=== PATIENT | female | born 1985 | race Caucasian/White ===

== ENCOUNTER 2025-02-27 16:02 | Emergency (ER) | payer OTHER, SELFPAY ==
--- OUTSIDE RECORDS SUMMARY | 2025-02-27 16:04 | XMS_ITS | Clinical Summary ---
Author Organization [facility] Address [address] [place] [address] Care Team Providers Care Food Manager Name Role Phone Demetra Coleman MD Unavailable [phone] Verito Dewitt Primary Care Provider [phone] Allergies Active Allergy Reactions Criticality Noted Date Comments Shrimp Hives,Itching 09/28/2020 Medications dextroamphetamine sulfate 10 mg tabletIndications: ADHD (attention deficit hyperactivity disorder), combined type Take 1 Tablet (10 mg) by mouth two times daily. 60 Tablet 5 Active dextroamphetamine sulfate 10 mg tabletIndications: ADHD (attention deficit hyperactivity disorder), combined type Take 1 Tablet (10 mg) by mouth two times daily. 60 Tablet 5 Active tazarotene 0.1 % creamIndications:A cne vulgaris Apply topically to affected area(s) at bedtime. 30 g 2 5 Active clindamycin 1 % gelIndications:Acn e vulgaris APPLY TO AFFECTED AREA UP TO 2 TIMES A DAY 60 g 2 5 Active dextroamphetamine sulfate (DEXEDRINE; DEXTROSTAT; ZENZEDI) 10 mg tabletIndications: ADHD (attention deficit hyperactivity disorder), combined type TAKE ONE TABLET BY MOUTH TWICE A DAY 60 Tablet 5 Active Active Problems Problem Noted Date Diagnosed Date Cervical cancer screening 08/05/2024 Overview (08/05/2024): 06/2024 NIL/HPV negative. Plan: Pap/HPV due 06/2029. Mixed hyperlipidemia 07/21/2024 ADHD (attention deficit hype ractivity disorder), combined type 03/01/2023 Controlled substance agreement signed 03/01/2023 Right tubal without intrauterine pregn carlos enrique 05/14/2019 Encounters Date Type Department Care Team Description 01/11/2025 Refill [facility] [address] [place] [address] Verito Dewitt PA Refill Request (Dextroamphetamine Sulfate) from Last 3 Months Immunizations Immunization Administration Dates Next Due Human Papilloma Virus Vaccine 09/16/2012, 012,06/19/2010 Influenza, IIV3 (Age >=3 years) 04/22/2006 Tdap 05/03/2011 Family History Medical History Relation Name Comments Schizophrenia Brother Coronary artery disease Father Hypertension Father Kidney disease Father Skin cancer Father Alzheimer's disease Maternal Grandmother Skin cancer Maternal Grandmother Good Health Mother Alzheimer's disease Paternal Grandmother Relation Name Status Comments Brother Father Maternal Grandmother Mother Paternal Grandmother Social History Tobacco Use Types Packs/Day Years Used Date Smoking Tobacco: Never Smokeless Tobacco: Never Tobacco Cessation:Counseling Given: Yes Alcohol Use Standard Drinks/Week Comments Not Currently 1 (1 standard drink = 0.6 oz pur e alcohol) PHQ-2 Answer Date Recorded PHQ-2 TOTAL SCORE 0 07/20/2024 Social Connections Answer Date Recorded Do you often feel lonely or isolated from those around you? 0 07/20/2024 Financial Resource Strain Answer Date R ecorded Difficulty of Paying Living Expenses 3 07/20/2024 Difficulty of Paying Living Expenses Not on file 07/20/2024 Food Insecurity Answer Date Recorded Do you worry your food will run out before you are able to buy more? 1 07/20/2024 Transportation Needs Answer Date Record ed Does lack of transportation keep you from medica l appointments? 1 07/20/2024 Does lack of transportation keep you from work, meetings or getting things that you need? 1 07/20/2024 Housing Stability Answer Date Recorded What is your housing situation today? 1 07/20/2024 Utilities Answer Date Recorded Do you have trouble paying f or utilities (for example, heat, electricity, water, phone)? 1 07/20/2024 Comments No Sex and Gender Information Value Date Recorded Sex Assigned at Female 09/28/2020 8:09 AM CDT Legal Sex Female 1:59 PM CDT Gender Identity Female 09/28/2020 8:09 AM CDT Sexual Orientation Straight 09/28/2020 8: 09 AM CDT Obstetrics History Para Term AB IAB SAB Ectopic Multiple Livin g Live Births 2 0 0 0 2 0 0 2 0 0 0 Date Outcome GA Total Labor Labor/2nd/3rd Weight Sex Type Anes PTL Jojo A1 A5 Name Clin 2018 Ectopic 020 Ectopic Comments Left Salpingectomy Last Filed Vital Signs Vital Sign Reading Time Taken Comments Blood Pressure 102/69 07/20/2024 3:30 PM CDT Pulse 81 07/20/2024 3:30 PM CDT Temperature 36.4 C (97.5 F) 05/19/2019 5:35 PM ASIAN ART CURATOR Respiratory Rate 20 05/19/2019 5:35 PM ASIAN ART CURATOR Oxygen Saturation 100% 07/20/2024 3:30 PM CDT Inhaled Oxygen Concentration - - Weight 69.4 kg (153 lb) 07/20/2024 3:30 PM CDT Height 174.8 cm (5' 8.82) 07/20/2024 3:30 PM CD T Body Mass Index 22.71 07/20/2024 3:30 PM CDT Plan of Treatment Health Maintenance Due Date Last Done Comments Hepatitis B series for 19+ (1 of 3 - 19+ 3-dose series) 2005 Tetanus booster 05/03/2021 05/03/2011 COVID-19 vaccine series ( season) 2024 Influenza Vaccine (#1) 2024 04/22/2006 BMI (ht and wt on same day) for age 18+ 07/20/2025 07/20/2024, 03/01/2023, 10/28/2020, Additional history exists Depression screening for age 12+ 07/23/2025 07/23/2024, 07/20/2024, 03/05/2023, Additional history exists Pap test for age 21-65 07/20/2029 , 07/20/2024, 09/28/2020 RSV vaccine for adults or (1 - 1-dose 75+ series) 2061 HPV series for age 9-45 Completed 09/17/19 13, 05/03/2011, 06/19/2010 HIV for age 15-65 Completed 03/01/2023 Hepatitis C screening for age 18-79 Completed 03/01/2023 Pneumococcal series for age 6-49 Aged Out No longer eligible based on patient's age to complete this topic Procedures Procedure Name Priority Date/Time Associated Diagnosis Comments COUNTER PROFESSIONAL THIN PREP PAP SCREEN IMAGED Routine 07/20/2024 4:33 PM CDT Screening for malignant neoplasm of cervix ANTI HIV 1/2 Routine 03/01/2023 3:43 PM ASIAN ART CURATOR Screening for HIV (human immunodeficiency virus) ANTI HCV Routine 03/01/2023 3:43 PM ASIAN ART CURATOR Need for hepatitis C screening test from Last 3 Months or Most Recently Relevant to Health Maintenance Results * COUNTER PROFESSIONAL THIN PREP PAP SCREEN IMAGED (07/20/2024 4:33 PM CDT) Case Report Gynecologic Cytology Report Case: [id number] Authorizing Provider: Verito Dewitt PA Collected: 07/20/2024 1633 Ordering Location: [facility] Received: 07/20/2024 1634 Clinic First Screen: Molly Wilhelm Specimen: COUNTER PROFESSIONAL ThinPrep Vial Screening, Cervical 08/04/2024 8:54 AM CDT [facility] INTERPRETATION/ RESULT NEGATIVE FOR INTRAEPITHELIAL LESION OR MALIGNANCY (NIL) (none) 08/04/2024 8:54 AM CDT [facility] 0854 CDT SPECIMEN ADEQUACY Satisfactory for evaluation No endocervical component seen 08/04/2024 8:54 AM CDT [facility] HPV REQUEST HPV and PAP 08/04/2024 8:54 AM CDT [facility] Date of LMP 06/22/24 08/04/2024 8:54 AM CDT [facility] Last Pap Date 09/28/20 08/04/2024 8:54 AM CDT [facility] Last Pap Result NIL 8:54 AM CDT [facility] Abnormal Pap or [place] Bx in last 5 years No 08/04/2024 8:54 AM CDT [facility] Menstrual Status Regular Periods 08/04/2024 8:54 AM CDT [facility] [place] Bx Done Today No 08/04/2024 8:54 AM CDT [facility] Additional Information None given 08/04/2024 8:54 AM CDT [facility] Comment: Cytology is screened at [facility] - [address], [place] [address] and [facility] - [address], [place] [address] and [facility] - [address] [place] [address] Interpreted at [facility] - [address], [place] [address] Automated Review Successful 08/04/2024 8:54 AM CDT [facility] Comment:Specimen processed s uccessfully by automated manager news device, ThinPrep Imaging System, [employer] ANCILLARY TESTING COUNTER PROFESSIONAL HPV Ordered, Please see separate report 08/04/2024 8:54 AM CDT [facility] Note The pap test is a screening technique, not a diagnostic procedure. It is used primarily to screen for squamous cancers and precursor lesions. Published studies have shown that it is subject to both false negative and false positive results. The pap test should not be used as the sole means to diagnose or exclude pre-malignant and malignant lesions. 08/04/2024 8:54 AM CDT [facility] Other (Cervical) Non-Blood / Unknown 07/20/2024 4:33 PM CDT 07/20/2024 4:34 PM CDT Verito BANDA PATHOLOGY/CYTOLOGY Final R esult [facility] [address] [place] [address] * ANTI HCV (03/01/2023 3:43 PM ASIAN ART CURATOR) HEPATITIS C ANTIBODY Non-Reacti ve Non-React nathalie 03/04/2023 3:21 PM ASIAN ART CURATOR [facility] Comment:Please note, per www .CDC.gov: If a patient is known to be at high risk of HCV infection, or is symptomatic, and the physician's suspicion of HCV infection is high, HCV RNA testing is often employed and is of diagnostic value, even after an initial negative anti-HCV test result. Blood BLOOD SPECIMEN / Unknown Venipuncture / Unknown 03/01/2023 3:43 PM ASIAN ART CURATOR 03/01/2023 3:45 PM ASIAN ART CURATOR Verito BANDA SEND OUTS Final Resu lt Performing Organization Address [facility] Co de Phone Number [facility] [address] [place] [address], * ANTI HIV 1/2 (03/01/2023 3:43 PM ASIAN ART CURATOR) HIV-1/HIV-2 SCREEN Non-Reacti ve Non-Reacti ve 03/01/2023 10:09 PM ASIAN ART CURATOR [facility] Comment:HIV-1 p24 and HIV-1/ HIV-2 Ab Not Detected. Blood BLOOD SPECIMEN / Unknown Venipuncture / Unknown 03/01/2023 3:43 PM ASIAN ART CURATOR 03/01/2023 3:45 PM ASIAN ART CURATOR us Verito BANDA SEND OUTS Final Resu lt Performing Organization Address City/[facility]/ZIP Co de Phone Number [facility] [address] [place] [address], from Last 3 Months or Most Recently Relevant to Health [place] [id number] [place] [id number] Care Teams Food Manager Relationship Specialty Start Date End Date Verito Dewitt PA [address] [place] [address] PCP - General Physician Security Trainer 03/01/23 Demetra Coleman MD [address] [place] [address] Family Practice 09/28/20
--- OUTSIDE RECORDS SUMMARY | 2025-02-27 16:04 | XMS_ITS | Patient Health Record ---
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
[2025-02-27 16:08] VITALS: BP 96/62; PULSE 86; RESP 20; TEMP 37.8; O2SAT 100; BMI 22.2
[2025-02-27 16:35] LABS: Hematocrit* 38.4 % (33.0-51.0); Hemoglobin* 12.5 gm/dL (12.0-16.0); Immature Granulocytes Abs Auto 0.00 K/uL (0.00-0.30); Immature Granulocytes Pct Auto 0.0 %; Lymphocytes Absolute Auto 2.03 K/uL (0.90-2.90); Mean Corpuscular HGB Conc 33 gm/dL (32-36); Mean Corpuscular Hemoglobin 29 pg (26-34); Mean Corpuscular Volume 88 fL (80-100); RDW Coefficient of Variation % 12.4 % (11.5-15.5); Red Blood Count* 4.38 m/uL (4.00-5.20); White Blood Count* 6.40 K/uL (4.50-11.00)
[2025-02-27 16:36] LABS: Slide Review Reflex No
[2025-02-27 16:37] LABS: Appearance Urine Clear (Clear); Ur HCG Qualitative* POSITIVE (Negative)
--- NOTE | 2025-02-27 16:39 | CRLHL7_ITS ---
For Patients: As a result of the Century Cures Act, medical imaging exams and procedure reports are released immediately into your electronic medical record. You may view this report before your referring provider. If you have questions, please contact your health care provider. INDICATION: Right-sided pelvic pain. Beta HCG 546.87. TECHNIQUE: Ultrasound pelvis transvaginal for better assessment or to better visualize the endometrium. Real-time sonographic images with spectral and color Doppler imaging of the ovaries were obtained. COMPARISON: None. FINDINGS: The uterus is normal in size and echotexture without mass. The endometrial stripe is thickened to 1.8 cm without gestational sac or focal fluid collection identified. No endometrial mass visualized. The ovaries are normal in appearance with probable corpus luteum within the right ovary. No abnormal free fluid in the pelvic cul-de-sac. IMPRESSION: Mildly thickened endometrial stripe measuring 1.8 cm without intrauterine gestation identified. Otherwise, unremarkable pelvic ultrasound. In the setting of a positive beta HCG, findings could represent an early nonvisualized intrauterine gestation, an early nonvisualized ectopic , or a failed intrauterine gestation. Recommend close clinical follow-up with serial B-HCGs and repeat US, as indicated. Dictated by Freddy Gaspar MD @ 02/27/2025 6:20:57 PM (Electronically Signed)
[2025-02-27 16:53] LABS: Chloride* 101 mmol/L (96-114); Potassium* 4.5 mmol/L (3.6-5.1); Sodium* 136 mmol/L (135-149)
[2025-02-27 16:55] LABS: Blood Urea Nitrogen* 12 mg/dL (5-24); Creatinine* 0.7 mg/dL (0.5-1.5); Est. Creatinine Clearance* 117.84; Estimated Glomerular Filt Rate 113 ml/min
[2025-02-27 16:56] LABS: Anion Gap 11 mEq/L (7-15); Calcium* 8.7 mg/dL (8.4-10.6); Carbon Dioxide* 24 mmol/L (20-32); Glucose* 93 mg/dL (60-115)
[2025-02-27 17:10] VITALS: BP 112/66; PULSE 82; RESP 16; O2SAT 96
--- NOTE | 2025-02-27 17:21 | ED_ITS ---
HPI - General Adult General Date Seen: 02/27/25 Chief complaint: Abdominal Pain Stated complaint: Abdominal pain, possible ectopic pregnacy Time Seen by Provider: 02/27/25 16:04 Source: patient Mode of arrival: ambulatory Limitations: no limitations History of Present Illness HPI narrative: Patient is a 39-year-old female presenting to the emergency department for right pelvic pain. She states she has had this pain before in the past with 2 previous ectopic pregnancies. Those are the only time she has ever been . She had 1 surgery that removed the left fallopian tube and then was treated with methotrexate for the other. She states pain started yesterday and has been gradually getting worse. Denies nausea, vomiting, fevers, chills, diarrhea, constipation, headache, vision changes, chest pain, shortness of breath. She has not had any vaginal bleeding. States she had vaginal bleeding for her previous ectopic pregnancies. Denies any hematuria or dysuria. No other concerns noted at this time. Related Data Home Medications ?Medication ?Instructions ?Recorded ?Confirmed dextroamphetamine sulfate 10 mg 10 mg PO BID 02/27/25 02/27/25 tablet Allergies Allergy/AdvReac Type Severity Reaction Status Date / Time No Known Drug Allergies Allergy Verified 02/27/25 16:11 Review of Systems Status of ROS: Reports: 10 or more systems reviewed and unremarkable except as noted in History and below Exam Narrative: Exam Narrative: Const: Well-nourished, Well-developed, in mild distress Eyes: PERRL, no conjunctival injection, and symmetrical lids HENT: Atraumatic external nose and ears. Moist mucous membranes. Neck: Symmetric, trachea midline, No thyromegaly. CVS: RRR, No murmurs or gallops. Peripheral pulses 2+ and equal in all extremities RESP: Unlabored respiratory effort. Clear to auscultation bilaterally. GI: Tenderness to palpation to right lower quadrant specifically at McBurney's point and right pelvis. Nondistended, No rebound or guarding. MSK:Extremities w/o deformity, Normal Active ROM Skin: Warm, Dry. No rashes or lesions. Neuro: Normal Muscle tone, No focal neurological deficits. Psych: Awake, Alert, & Oriented x3. Appropriate mood and affect. Const: Vital Signs, click to edit/add: Vital Signs - 24 hr 02/27/25 16:08 02/27/25 17:10 Temperature 100.0 F H Pulse Rate 82 Pulse Rate [Pulse Oximeter] 86 Respiratory Rate 20 16 Blood Pressure 112/66 Blood Pressure [Ri ght Upper Arm] 96/62 Pulse Oximetry 100 96 Oxygen Delivery Me thod Room Air Room Air Course Vital Signs Vital signs: Initial Vital Signs Temperature 100.0 F H 02/27/25 16:08 Temperature Source Temporal Artery Scan 02/27/25 16:08 Pulse Rate 86 02/27/25 16:08 Respiratory Rate 20 02/27/25 16:08 Blood Pressure 96/62 02/27/25 16:08 Blood Pressure Mean 73 02/27/25 16:08 Blood Pressure Position Sitting 02/27/25 16:08 Pulse Oximetry 100 02/27/25 16:08 Oxygen Delivery Method Room Air 02/27/25 16:08 Vital Signs Temperature 100.0 F H 02/27/25 16:08 Pulse Rate 86 02/27/25 16:08 Respiratory Rate 20 02/27/25 16:08 Blood Pressure 96/62 02/27/25 16:08 Pulse Oximetry 100 02/27/25 16:08 Oxygen Delivery Method Room Air 02/27/25 16:08 Temperature 100.0 F H 02/27/25 16:08 Pulse Rate 82 02/27/25 17:10 Respiratory Rate 16 02/27/25 17:10 Blood Pressure 112/66 02/27/25 17:10 Pulse Oximetry 96 02/27/25 17:10 Oxygen Delivery Method Room Air 02/27/25 17:10 Medical Decision Making MDM Narrative Medical decision making narrative: Patient is a 39-year-old female presenting to the emergency department for right pelvic pain. She notices the pain mostly in her pelvic region but on my exam she was having some tenderness in the right lower quadrant of the abdomen also. I do some concern for appendicitis. Will hold any CT imaging pending rest of workup. Main concern at this time is ectopic . Urine test was positive so will order an ultrasound. Quantitative hCG also ordered. Also order type and screen, BMP, CBC, urinalysis. Lab work shows no acute concerning abnormalities. White blood cell count within normal limits. Her quantitative hCG is 546. This is consistent with around 5 weeks of . Ultrasound returned showing no clear signs of was causing symptoms. There is a thickened endometrial stripe but we cannot see an intrauterine or ectopic . As he has had no bleeding I do not believe she had a miscarriage. With the pain though I am still concerned about possible appendicitis. We do not have MRI available at this time patient declined CT to the which is very reasonable. Considering her lab work looks well and she overall feels well I am comfortable discharging her home with OB follow-up. I did speak to the on-call OB provider, Dr. Barreto, she states she can follow-up with them in clinic. I did give the patient strict return precautions for worsening pain and informed her she may need an MRI for appendicitis. She is agreeable to this plan. She will be discharged. Lab Data Labs: Lab Results 02/27/25 02/27/25 02/27/25 Range/Units 16:25 16:30 16:38 WBC 6.40 (4.50-11.00) K/uL RBC 4.38 (4.00-5.20) m/uL Hgb 12.5 (12.0-16.0) gm/dL Hct 38.4 (33.0-51.0) % MCV 88 (80-100) fL MCH 29 (26-34) pg MCHC 33 (32-36) gm/dL RDW Coeff of Mariluz 12.4 (11.5-15.5) % Plt Count 257 (140-440) K/uL Neut % (Auto) 54.0 (42.0-72.0) % Lymph % (Auto) 31.7 (20-44) % Dickinson % (Auto) 7.2 (0.0-11.0) % Eos % (Auto) 6.3 (0.0-7.0) % Baso % (Auto) 0.8 (0.0-3.0) % Neut # (Auto) 3.46 (1.7-7.0) K/uL Lymph # (Auto) 2.03 (0.90-2.90) K/uL Dickinson # (Auto) 0.50 (0.00-0.90) K/UL Eos # (Auto) 0.40 (0.00-0.50) K/uL Baso # (Auto) 0.05 (0.00-0.30) K/uL Abs Immat Gran (auto) 0.00 (0.00-0.30) K/uL Imm/Tot Granulo (auto) 0.0 % Sodium 136 (135-149) mmol/L Potassium 4.5 (3.6-5.1) mmol/L Chloride 101 (96-114) mmol/L Carbon Dioxide 24 (20-32) mmol/L Anion Gap 11 (7-15) mEq/L BUN 12 (5-24) mg/dL Creatinine 0.7 (0.5-1.5) mg/dL Estimated Creat Clear 117.84 Estimated GFR 113 ml/min Glucose 93 (60-115) mg/dL Calcium 8.7 (8.4-10.6) mg/dL HCG, Quant 546.87 mIU/mL Urine Color Yellow (Yellow) Urine Appearance Clear (Clear) Urine pH 5.5 (5.0-8.5) Ur Specific [place] 1.025 (1.000-1.030) Urine Protein Negative (Negative) Urine Glucose (UA) Negative (Negative) Urine Ketones Negative (Negative) Urine Blood Negative (Negative) Urine Nitrite Negative (Negative) Urine Bilirubin Negative (Negative) Urine Urobilinogen 0.2 (0.2-1.0) Ur Leukocyte Esterase Negative (Negative) Urine RBC 0-2 (0-2) Urine WBC 0-2 (0-5) Ur Squamous Epith Cells Few (None-Few) Urine Bacteria None (None) Urine HCG, Qual POSITIVE H (Negative) Lab Acknowledgement Test Added Blood Type B Positive Antibody Screen NEGATIVE Imaging Data Transvaginal ultrasound: Attestation: I have reviewed the pertinent imaging results. Radiologist's impression: Mildly thickened endometrial stripe measuring 1.8 cm without intrauterine gestation identified. Otherwise, unremarkable pelvic ultrasound. In the setting of a positive beta HCG, findings could represent an early nonvisualized intrauterine gestation, an early nonvisualized ectopic , or a failed intrauterine gestation. Recommend close clinical follow-up with serial B-HCGs and repeat US, as indicated. Dictated by Freddy Gaspar MD @ 02/27/2025 6:20:57 PM Discharge Plan Discharge Clinical Impression: Pelvic pain during Patient Disposition: Home, Self-Care Condition: Stable Instructions: Abdominal Pain in (ED) Additional Instructions: [facility] should be calling you 1 Saturday to schedule close follow-up. They will likely want you to be seen either Saturday or Saturday. If he started having worsening right lower quadrant abdominal pain there is concerned about appendicitis I recommend you get it evaluated immediately. You will likely need an MRI due to her . MRI is typically available here in [place] on week days during the day. Prescriptions: No Action dextroamphetamine sulfate 10 mg tablet 10 mg PO BID Follow Up/Referrals: Verito Dewitt PA-C [Primary Care Provider, Family Practice] Stand Alone Forms: [facility] Info Instructions
[2025-02-27 18:53] VITALS: BP 106/66; PULSE 85; RESP 16; O2SAT 100
== END 2025-02-27 18:58 | disposition home or self-care (01) ==
PROVIDERS: Emergency Provider Student in an Organized Health Care Education/Training Program; PCP Physician Assistant
DX: R10.21 Pelvic and perineal pain right side (principal); Z3A.01 Less than 8 weeks gestation of pregnancy
CPT/HCPCS: 36415; 76817; 80048; 81001; 81025; 84702; 85025; 86850; 86900; 86901; 93976; 99284

== ENCOUNTER 2025-03-01 10:43 | Outpatient (CLI) | payer OTHER, SELFPAY | END 2025-03-01 10:44 | disposition home or self-care (01) | LOC: NFLDREF 10:43 | PROVIDERS: PCP Physician Assistant; Visit Provider Obstetrics & Gynecology | DX: O36.80X0 Pregnancy with inconclusive fetal viability, not applicable or unspecified (principal) | CPT/HCPCS: 84702 ==

== ENCOUNTER 2025-03-03 11:53 | Outpatient (CLI) | payer OTHER, SELFPAY | END 2025-03-03 11:54 | disposition home or self-care (01) | LOC: NFLDREF 03-09 21:24 | PROVIDERS: PCP Physician Assistant; Referring Provider Physician Assistant; Visit Provider Obstetrics & Gynecology | DX: O36.80X0 Pregnancy with inconclusive fetal viability, not applicable or unspecified (principal) | CPT/HCPCS: 80053; 84702 ==

== ENCOUNTER 2025-03-03 11:56 | Outpatient (CLI) | payer OTHER, SELFPAY ==
--- NOTE | 2025-03-03 12:15 | CRLHL7_ITS ---
For Patients: As a result of the Century Cures Act, medical imaging exams and procedure reports are released immediately into your electronic medical record. You may view this report before your referring provider. If you have questions, please contact your health care provider. Indication: of uncertain location. Technique: Ultrasound examination of the pelvis was performed. The study was performed transvaginally. Grayscale imaging was provided as well as color Doppler and spectral Doppler. The transvaginal portion of the study was performed to better evaluate the endometrial contents and the adnexa. Comparison: A prior study dated February 27, 2025. That study did not show an IUP. Findings: The uterus is normal in size. There is heterogeneous thickening of the endometrium without evidence of a fluid collection, yolk sac or pole within the endometrium. This could be a pseudo gestational reaction. There is a solid structure in the right adnexa measuring 5.2 x 1.5 x 2.2 centimeters. This did not appear to be present on the prior study and could be an ectopic . The right ovary measures 5.1 x 1.7 x 2.8 centimeters and the left ovary measures 3.6 x 1.3 x 3.0 centimeters. There is a corpus luteum cyst in the right ovary measuring 2.8 x 1.0 x 2.2 centimeters. There is mild free fluid in the cul-de-sac. Impression: 1. Solid structure in the right adnexa measuring 5.2 x 1.5 x 2.2 centimeters which was not demonstrated February 27, 2025. This appears to be separate from the ovary. 2. There is heterogeneous thickening of the endometrium but no findings of an IUP 3. There is a small amount of fluid in the cul-de-sac. 4. The ovaries are well visualized. There is a corpus luteum cyst of in the right ovary. The ovaries are otherwise unremarkable bilaterally. No evidence of torsion. 5. THE RIGHT ADNEXAL FINDING IS SUSPICIOUS FOR AN ECTOPIC . APPROPRIATE CONSULTATION IS RECOMMENDED REGARDING THIS FINDING. Dictated by Denilson Mooney MD @ 03/03/2025 12:54:14 PM (Electronically Signed)
== END 2025-03-03 11:57 | disposition home or self-care (01) ==
LOC: US 11:57
PROVIDERS: PCP Physician Assistant; Visit Provider Obstetrics & Gynecology
DX: O00.90 Unspecified ectopic pregnancy without intrauterine pregnancy (principal); O26.891 Other specified pregnancy related conditions, first trimester; N83.11 Corpus luteum cyst of right ovary; O36.80X0 Pregnancy with inconclusive fetal viability, not applicable or unspecified
CPT/HCPCS: 76817

== ENCOUNTER 2025-03-03 13:43 | Day surgery (SDC) | payer OTHER, SELFPAY ==
[2025-03-03] VITALS (21 sets, daily range): BP systolic 79–107; BP diastolic 36–69; PULSE 69–92; RESP 12–22; TEMP 36.8–37.2; O2SAT 96–100; BMI 22.2
--- NOTE | 2025-03-03 14:16 | P.GYNHP_ITS ---
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 Richard for ED follow up. This note is reviewed today. She was concerned about inappropriate rise of HCG and non viability of this so recommendation was given to repeat lab work, imaging and possibly treat with methotrexate today. Today ultrasound findings are very suggestive of right adnexal ectopic . Due to the size of suspected ectopic my partner Dr. Richard had a repeat discussion with patient and and they have decided to instead proceed with surgical management. As trade promotion analyst provider today, I will take care of surgery and observation in hospital today. The patient is a 39-year-old female who presents for an ED follow-up in the setting of a of unknown location. She is approximately 8w1d by LMP (somewhat uncertain). Gynecologic history is complicated by history of ectopic x2, where she underwent left salpingectomy with her 1st and was treated with methotrexate x2 for her 2nd. She is accompanied by her . Patient presented to the emergency department on 02/27 for right lower quadrant pain. There, her vital signs were within normal limits and she was hemodynamically stable. A pelvic ultrasound was obtained, which was negative for evidence of an IUP as well as negative adnexal survey. HCG was 546.87 and hemoglobin 12.5. Patient was discharged with return precautions. Repeat HCG on 03/01 demonstrated an inappropriate rise to 708.59 at 29.6%. Verito notes her pain has varied since ED presentation. At present, it is tolerable and rated about a 5/10 in severity. Yesterday evening it did seem to worsen, up to a 7 to 8/10. She notes her pain seems to be worse when she is up and moving, improves with lying down. She has not needed any ibuprofen or Tylenol for pain. Her only new symptom is that she has noted new onset of small volume vaginal bleeding, which was bright red x1 yesterday evening and now is brown. She denies any nausea/vomiting, dizziness/lightheadedness, fever/chills, feeling unwell or upper back pain. She did notice some left lateral scapula/upper arm pain yesterday that was transient, this has resolved. Her most notable ectopic risk factor is history of ectopic x2. She denies a history of tubal surgery, PID, gonorrhea/chlamydia. She conceived this spontaneously, it is desired. Gynecological History discussed: - Last menstrual period: 01/05/2025 - Cycle length: 31 days Obstetrical History discussed: - Third - Previous two pregnancies were ectopic PAST SURGICAL HISTORY: - Removal of left fallopian tube PFSH PFSH Social History What is your current living situation?: I presently have a place to live Problems where you live: no known problems In the past 12 months, utilities in danger of being shut off: no In past 12 months, lack of transportation kept you from medical appts, meetings, work, or getting things needed for daily living: no In the past 12 mos, have been you worried that your food would run out before you had money to buy more?: never true In the past 12 mos, the food you bought just didn't last and you didn't have money to buy more?: never true Smoking Status: Former smoker How often do you have a drink containing alcohol: never AUDIT-C Alcohol total score: 0 Non-prescribed substance use: denies use How often does anyone, including family, friends and others, physically hurt you : never How often does anyone, including family, friends and others, insult or talk down to you: never How often does anyone, including family, friends and others, threaten you with harm: never How often does anyone, including family, friends and others, scream or curse at you: never Meds Home Medications and Allergies Home Medications ?Medication ?Instructions ?Recorded ?Confirmed ?Type dextroamphetamine sulfate 10 mg 10 mg PO BID 02/27/25 03/03/25 History tablet Held on 03/03/25. 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 normal affect, alert, no distress MOOD:? appropriate CHEST:? clear to auscultation HEART:? regular rate and rhythm ABDOMEN:?soft, not distended, slightly tender to palpation of lower abdomen. EXTREMITIES:? normal and no edema GRAIN DRIER OPERATOR - Results Imaging Pelvic US: Radiologist's impression: Findings: The uterus is normal in size. There is heterogeneous thickening of the endometrium without evidence of a fluid collection, yolk sac or pole within the endometrium. This could be a pseudo gestational reaction. There is a solid structure in the right adnexa measuring 5.2 x 1.5 x 2.2 centimeters. This did not appear to be present on the prior study and could be an ectopic . The right ovary measures 5.1 x 1.7 x 2.8 centimeters and the left ovary measures 3.6 x 1.3 x 3.0 centimeters. There is a corpus luteum cyst in the right ovary measuring 2.8 x 1.0 x 2.2 centimeters. There is mild free fluid in the cul-de-sac. Impression: 1. Solid structure in the right adnexa measuring 5.2 x 1.5 x 2.2 centimeters which was not demonstrated February 27, 2025. This appears to be separate from the ovary. 2. There is heterogeneous thickening of the endometrium but no findings of an IUP 3. There is a small amount of fluid in the cul-de-sac. 4. The ovaries are well visualized. There is a corpus luteum cyst of in the right ovary. The ovaries are otherwise unremarkable bilaterally. No evidence of torsion. 5. THE RIGHT ADNEXAL FINDING IS SUSPICIOUS FOR AN ECTOPIC . APPROPRIATE CONSULTATION IS RECOMMENDED REGARDING THIS FINDING. Assessment and Plan Assessment and plan (1) Ectopic : Status: Acute Plan 39-year-old with positive test, inadequate rise in HCGs currently with imaging findings concerning for a right adnexal ectopic . After discussion of alternatives for management we recommend to proceed with surgical management. She has been NPO since yesterday. Currently vitally stable and pain is under control. I did review with patient and her surgical procedure. Reviewed recommendation for a laparoscopic approach and high possibility for right salpingectomy-removal of ectopic . Discussed how surgery is completed, patient would be very grateful if we could utilize the same abdominal incisions that were utilize for her previous laparoscopic surger y. Otherwise, discussed risks of surgery to include bleeding and needing a blood transfusion as a life-saving intervention, risk of infection, damage to nearby organs, risk of blood clots. Reviewed interventions to decrease these risks such as placement of a Pacheco catheter, compression stockings on her lower extremities. Discussed restrictions after surgery such as avoiding lifting more than 20 lb for at least 2 weeks after surgery. I would also recommend against intercourse or anything vaginally for the same amount of time. Discussed that we should obtain pathology results within a week and we will call her with results. Discussed recommendation for a follow-up clinic visit in 2 weeks after surgery. Patient would prefer to go home later tonight if possible. We reviewed what to expect in terms of pain, gas pain and possibility for shoulder pain after a laparoscopic surgery. Discussed possible alternatives for management of pain with anti-inflammatory medication and opiod medication. Whole OR has been notified, discussed with patient that we should be able to proceed with surgical intervention at around 4-5 p.m. in the meantime we will move her to a room so that she is more comfortable and continued monitoring while we proceed with surgery. Patient and are in agreement with plan. Patient understands that after this salpingectomy she would not be able to achie ve without assisted reproductive techniques. Patient and had already discussed IVF in the past and they are interested in this alternative further future.
[2025-03-03 14:38] LABS: Hemoglobin* 12.6 gm/dL (12.0-16.0)
[2025-03-03] MEDS: LACTATED RINGERS 1000 ML 1,000 ML 125 ML IV ×3 (14:45→22:22)
[2025-03-03] MEDS: BUPIVACAINE 0.5% 30 ML INJECTION (18:08)
--- NOTE | 2025-03-03 18:34 | P.GYNPRC_ITS ---
Procedure Note Date of procedure: 03/03/25 Will [facility] bill your pro fee for this procedure?: Yes Pre-op diagnosis: Suspected right adnexal ectopic Post-op diagnosis: Right fallopian tube ectopic Procedure: Laparoscopic right salpingectomy Anesthesia: GETA Complications: None Surgeon: Anne Watters MD Estimated blood loss (mL): 10 IV fluids (mL): 1,500 Urine Output (mL): 100 (clear urine at end of procedure) Pathology: specimen obtained, sent to pathology (right fallopian tube and ectopic) Condition: stable Disposition: observation Findings: Normal external genitalia. Speculum exam: cervix grossly normal w/o lesions or abnormal discharge. Intra abdominal survey: Grossly normal liver, stomach, intestine. Thin adhesions of the right ascending colon and appendix to the right abdominal sidewall. Appendix grossly normal. Evidence of moderate amount of blood in the posterior cul de sac. Evidence of previous salpingectomy on the left side. Right fallopian tube looked enlarged in its mid portion and fimbrial end noted to have light bleeding. Right ovary with small what looks like a hemorrhagic corpus luteum cyst. Left ovary grossly normal. Mideline uterus of about 9cm, w/o gross lesions. Procedure Description: Patient was taken to the OR with IV fluid running and pneumatic compression stockings applied to the lower extremities. General anesthesia was obtained without difficulty. The patient was placed in the dorsal lithotomy position with Deejay type stirrups with knee bent at 30 degree angles. Patient was prepared and draped under usual sterile technique. Examination under anesthesia with findings as above. The bladder was emptied and Pacheco catheter placed. Speculum was placed in the vagina. The anterior lip of the cervix was grasped with a single-tooth tenaculum. Uterine manipulator was introduced. I then changed gloves and attention was placed on the abdomen. Two Allis clamps were applied to the periumbilical skin for manual elevation of the abdomen. A vertical skin incision was made in the umbilical fold. 5 mm Optiview trocar introduced into the peritoneal cavity without difficulty. Direct visualization confirmed intraperitoneal placement. Pneumoperitoneum was established with CO2 gas to a pressure of 15mmHg. Findings as above. An intra-abdominal survey revealed normal-appearing liver, gallbladder, spleen, and lack of any visceral or vascular injury. The Trendelenburg position was obtained to facilitate pelvic exposure. One 11mm trocar was inserted on the left lower quadrant were previous laparoscopic surgery skin incisions had been made-as per patients request. A 5 mm trocars was then inserted on the right lower quadrant both under direct laparoscopic visualization. Pictures taken for documentation purposes. The right fallopian tube was then elevated away from the pelvic sidewall with a atraumatic grasper. Utilizing Thunderbeat bipolar energy mesosalpinx was serially coagulated and cut until cornual region. Fallopian tube was placed in the ant erior cul de sac. A laparoscopic bag was introduced through the 11mm port, open under direct visualization and specimen placed in bag and removed under direct visualization as well. Specimen sent to pathology. Resection site re evaluated and hemostasis confirmed. Hemoperitoneum was then evacuated with suction and pelvis irrigated and cleansed at least twice. Abdomen and pelvis were thoroughly inspected. Good hemostasis was noted at resection sites. The left lower abdominal quadrant port fascia was closed utilizing a Kobe Zoe system and Vicryl 0 suture. The rest of the trocars removed under direct visualization. All instruments were removed from the abdomen and vagina. The pneumoperitoneum was released, and correct instrument counts were confirmed. Skin incisions were closed with 4-0 Monocryl sutures in a subcuticular fashion. The patient was taken to the recovery room in a stable condition. Patient will be discharged from recovery after all the criteria are met for discharge. She was given instructions regarding follow-up visit in 2 weeks at the [facility]. Postop pain management, lifting restrictions, intercourse restrictions were discussed with patient before surgery all questions were answered.
--- NOTE | 2025-03-03 18:42 | P.ANES_ITS ---
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
--- NOTE | 2025-03-03 18:42 | W.ANESCHARGE ---
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
[2025-03-03] MEDS: ONDANSETRON 2 MG/ML inj 4 MG IVP (19:42)
--- NOTE | 2025-03-03 20:08 | PC.NURSE ---
Verbal order from Dr. Barreto: Percocet 5-325mg. 1 tablet every 4-6 hours by mouth for pain. Dispense 10 tablets. No refills Also stated Please ensure patient knows not to exceed 4000mg Tylenol daily.
--- NOTE | 2025-03-03 20:44 | PC.NURSE ---
Called [facility] [place], [place] to cancel Oxycodone 5 mg PO tablets (15) take every 4-6 hours PRN for pain per MD Salena Watters. New prescription sent to [facility], see other notes.,
[2025-03-04 00:20] VITALS: BP 98/72; PULSE 96; RESP 14; O2SAT 100
[2025-03-04 01:15] VITALS: BP 97/57; PULSE 98; RESP 14; TEMP 37; O2SAT 100
== END 2025-03-04 01:38 | disposition home or self-care (01) ==
LOC: OB 21:59 → SS 03-04 15:07
PROVIDERS: PCP Physician Assistant; Visit Provider Obstetrics & Gynecology
PROC: (CPT 59150; principal; 2025-03-03 17:00)
DX: O00.101 Right tubal pregnancy without intrauterine pregnancy (principal); O00.90 Unspecified ectopic pregnancy without intrauterine pregnancy; O26.891 Other specified pregnancy related conditions, first trimester; N83.11 Corpus luteum cyst of right ovary
CPT/HCPCS: 59151; 00840; 00851; 36415; 85018; 86850; 86900; 86901; 99140; A9270; J0330; J0665; J1100; J1171; J1885; J2250; J2405; J2704; J2710; J3010; J3490; J7120

== ENCOUNTER 2025-03-19 15:08 | Outpatient (CLI) | payer OTHER, SELFPAY | END 2025-03-19 15:09 | disposition home or self-care (01) | LOC: NFLDREF 15:10 | PROVIDERS: PCP Physician Assistant; Visit Provider Obstetrics & Gynecology | DX: Z87.59 Personal history of other complications of pregnancy, childbirth and the puerperium (principal); R53.83 Other fatigue | CPT/HCPCS: 83540; 83550 ==